=== PATIENT | male | born 1955 | race Caucasian/White ===

== ENCOUNTER 2017-07-26 19:06 | Emergency (ER) | payer OTHER ==
--- NOTE | 2017-07-26 19:49 | RAD ---
PA AND LATERAL CHEST: Indication: Cough. Comparison: None. IMPRESSION: No acute cardiopulmonary abnormality. COMMENTS: No airspace consolidation is evident. There are vascular calcifications involving the aortic arch. T here is multilevel spondylosis of the thoracic spine. POS: [facility]
== END 2017-07-26 21:03 | disposition home or self-care (01) ==
LOC: SCSER 19:06
DX: J45.901 Unspecified asthma with (acute) exacerbation (principal); B19.20 Unspecified viral hepatitis C without hepatic coma
CPT/HCPCS: 71020

== ENCOUNTER 2018-09-15 08:01 | Outpatient (CLI) | payer OTHER ==
--- NOTE | 2018-09-15 10:41 | ULT ---
HEPATIC DOPPLER ULTRASOUND: HISTORY: Elevated LFTs. COMPARISON: None. TECHNIQUE: Real-time gavin-scale color Doppler and spectral analysis of the liver was performed. FINDINGS: The visualized portions of the pancreas are unremarkable. Diffusely increased hepatic echotexture. The left and right portal veins are patent. The hepatic veins are patent. Normal phasicity. The main portal vein is patent. Antegrade flow. The gallbladder is normal. No pericholecystic fluid. The spleen measures 9.5 cm in length. No hepatic mass. No pericholecystic fluid. The common bile duct measures 4 mm. The spleen measures 9.5 cm in length. IMPRESSION: Diffuse increased echotexture of the liver with coarsening, suggesting cirrhosis. POS: [facility]
== END 2018-09-15 08:02 | disposition home or self-care (01) ==
LOC: SCSULT 08:01
PROVIDERS: ATTEND Internal Medicine
DX: K74.60 Unspecified cirrhosis of liver (principal); B37.81 Candidal esophagitis; B18.2 Chronic viral hepatitis C; K22.70 Barrett's esophagus without dysplasia
CPT/HCPCS: 76705